=== PATIENT | female | born 1995 | race Caucasian/White ===

== ENCOUNTER 2016-08-11 10:39 | Emergency (ER) | payer OTHER ==
[2016-08-11 11:50] LABS: BASOPHIL 0.4 % (0-2); EOSINOPHIL 1.7 % (0-5); HCT 38.1 % (37.0-47.0); HGB 13.3 g/dl (12.5-16.0); MCH 31.2 pg (25.0-31.0); MCHC 34.9 g/dL (32.0-36.0); MCV 89.4 fL (78.0-100.0); MONOCYTE 7.6 % (0-12); MPV 10.8 fL (6.0-9.5); NEUTROPHIL 64.3 % (41-80); PLT 214 K/uL (150-400); RBC 4.26 M/uL (4.20-5.40); WBC 4.6 K/uL (4.0-10.5)
[2016-08-11 12:09] LABS: CREATININE 0.7 mg/dL (0.5-1.0); POTASSIUM 3.9 mmol/L (3.5-5.1)
== END 2016-08-11 14:53 | disposition home or self-care (01) ==
LOC: FER 10:39
PROVIDERS: Internal Medicine
DX: O20.0 Threatened abortion (principal); O99.511 Diseases of the respiratory system complicating pregnancy, first trimester; J45.909 Unspecified asthma, uncomplicated; Z3A.01 Less than 8 weeks gestation of pregnancy
CPT/HCPCS: 36415; 76817; 80048; 84702; 84703; 85025; 86850; 86900; 86901; J2790

== ENCOUNTER 2016-08-15 08:26 | Emergency (ER) | payer OTHER ==
[2016-08-15 08:36] LABS: BILIRUBIN NEGATIVE (NEGATIVE); BLOOD NEGATIVE Ery/uL (NEGATIVE); COLOR YELLOW (YELLOW); GLUCOSE (U) NORMAL (NORMAL); KETONE (U) NEGATIVE (NEGATIVE); LEUKOCYTES 2+ Leu/uL (NEGATIVE); NITRITE NEGATIVE (NEGATIVE); PROTEIN NEGATIVE (NEGATIVE); SPECIFIC GRAVITY 1.025 (1.001-1.030); UROBILINOGEN 0.2 mg/dL (0.2-1.0)
[2016-08-15 08:38] LABS: CLARITY SLIGHTLY HAZY (CLEAR)
[2016-08-15 08:47] LABS: BACTERIA 2+; SQUAMOUS EPITHELIAL CELLS 20-50; URINARY RBC RARE
[2016-08-15 08:49] LABS: AMORPHOUS URATES CRYSTALS MODERATE
== END 2016-08-15 10:54 | disposition home or self-care (01) ==
LOC: FER 08:26
PROVIDERS: Internal Medicine
DX: O20.0 Threatened abortion (principal); O99.89 Other specified diseases and conditions complicating pregnancy, childbirth and the puerperium; R82.90 Unspecified abnormal findings in urine; Z3A.01 Less than 8 weeks gestation of pregnancy
CPT/HCPCS: 36415; 81001; 84702; 87088; 99284

== ENCOUNTER 2021-04-07 18:45 | Emergency (ER) | payer OTHER ==
[~2021-04-07 18:45] MED LIST: BIRTH CONTROL PO; PERCOCET 5-3251 EACH PO; ZANTAC150 MG PO
[2021-04-07 20:19] LABS: BASOPHIL 0.6 % (0-2); EOSINOPHIL 0.8 % (0-5); HCT 38.3 % (37.0-47.0); HGB 12.7 g/dl (12.5-16.0); LYMPHOCYTE 33.1 % (15-48); MCH 30.6 pg (25.0-31.0); MCHC 33.2 g/dL (32.0-36.0); MCV 92.3 fL (78.0-100.0); MONOCYTE 13.3 % (0-12); MPV 10.9 fL (6.0-9.5); NEUTROPHIL 51.9 % (41-80); NRBC 0; PLT 179 K/uL (150-400); RBC 4.15 M/uL (4.20-5.40); RDW 13.1 % (11.5-14.0); WBC 3.5 K/uL (4.0-10.5)
[2021-04-07 20:53] LABS: ALBUMIN 3.9 g/dL (3.4-5.0); BILIRUBIN - TOTAL 0.2 mg/dL (0.2-1.0); BUN/CREAT RATIO (CALC) 18.4 RATIO; C-REACTIVE PROTEIN 0.7 mg/dL (<=0.90); CREATININE 0.76 mg/dL (0.51-0.95); GLOBULIN (CALCULATION) 3.4 g/dL; MAGNESIUM 2.2 mg/dL (1.8-2.4); POTASSIUM 3.7 mmol/L (3.5-5.1); TOTAL PROTEIN 7.3 g/dL (6.4-8.2)
[2021-04-07] MEDS ORDERED: ZOFRAN4 M1 PO (22:04)
[2021-04-07] MEDS ORDERED: MEDROL 4MG DOSEP4 MG PO (22:04)
[2021-04-07] MEDS ORDERED: PROAIR HFA8.5 GM INH (22:04)
[2021-04-07] MEDS ORDERED: NAPROXEN500 MG PO (22:04)
[2021-04-07] MEDS ORDERED: MUCINEX D TABL1 EACH PO (22:04)
== END 2021-04-07 22:15 | disposition home or self-care (01) ==
LOC: FER 18:45
PROVIDERS: Emergency Medicine
DX: U07.1 COVID-19 (principal); Z23 Encounter for immunization
CPT/HCPCS: 36415; 80053; 82728; 83615; 83735; 84145; 84484; 85025; 85379; 86140; 93005; M0245; Q0245

== ENCOUNTER 2021-04-16 14:36 | Emergency (ER) | payer OTHER ==
[~2021-04-16 14:36] MED LIST changes: +MEDROL 4MG DOSEP4 MG PO; +MUCINEX D TABL1 EACH PO; +NAPROXEN500 MG PO; +PROAIR HFA8.5 GM INH; +ZOFRAN4 M1 PO
== END 2021-04-16 17:33 | disposition home or self-care (01) ==
LOC: FER 14:36
DX: R07.89 Other chest pain (principal); N64.4 Mastodynia; J45.909 Unspecified asthma, uncomplicated; Z86.16 Personal history of COVID-19
CPT/HCPCS: 71045; 96372; J1885; J2930